=== PATIENT | male | born 1960 | race Hispanic/Latino ===

== ENCOUNTER → 2019-04-12 | Outpatient (CLI) | payer MEDICARE | END | disposition home or self-care (01) | LOC: RAH 15:36 | PROVIDERS: ATTEND Family Medicine | DX: M19.011 Primary osteoarthritis, right shoulder (principal); M75.101 Unspecified rotator cuff tear or rupture of right shoulder, not specified as traumatic | CPT/HCPCS: 73221 ==

== ENCOUNTER 2019-08-02 09:21 | Day surgery (SDC) | payer MEDICARE ==
[2019-07-31 10:32] VITALS: BP 132/72
[2019-07-31 11:37] LABS: BASOPHILS % (AUTO) 0.7 % (0.0-5.0); EOSINOPHILS % (AUTO) 1.7 % (0.0-8.0); HEMATOCRIT 41.2 % (42-54); LYMPHOCYTES % (AUTO) 26.5 % (21.0-51.0); MEAN CORPUSCULAR HEMOGLOBIN 30.3 pg (27.0-33.0); MEAN CORPUSCULAR HGB CONC 33.7 g/dL (32.0-36.0); MEAN CORPUSCULAR VOLUME 89.8 fL (79-99); MONOCYTES % (AUTO) 8.7 % (3.0-13.0); NEUTROPHILS % (AUTO) 61.8 % (40.0-77.0); PLATELET COUNT (AUTO) 297 K/uL (130-400); RED BLOOD CELL COUNT(AUTO) 4.59 MIL/uL (4.50-6.20); RED CELL DISTRIBUTION WIDTH 12.6 % (11.0-15.5); WHITE BLOOD COUNT (AUTO) 8.9 K/uL (4.8-10.8)
[~2019-08-02] VITALS: Ht 170.2 cm; Wt 83.2 kg
[2019-08-02] VITALS (12 sets, daily range): BP systolic 116–146; BP diastolic 73–89
[~2019-08-02 09:21] MED LIST: ATOR20TA65 PO; CEFAZOLIN SODIUM 1 GM VIAL IVP ONE; TRAM50TA4 PO
[2019-08-02] MEDS ORDERED: LACTATED RINGERS 1000ML 1,000 ML IV ONE (10:19)
[2019-08-02] MEDS ORDERED: CEFAZOLIN SODIUM 1 GM VIAL ONE (10:19)
--- NOTE | 2019-08-02 11:00 | NUR ---
POTENTIAL FOR INFECTION: SHAVED RIGHT SHOULDER / RT UPPER ARM PER JAZ ELENA, FOLLOWED BY WIPING WITH JEFRY: 2% CHLORHEXIDINE GLUCONATE CLOTH PATIENTS PRE-OP SKIN PREP.
[2019-08-02] MEDS ORDERED: EPINEPHRINE 1 MG/ML 30ML VIAL IJ ONE (13:40)
[2019-08-02] MEDS ORDERED: SUCCINYLCHOLINE CHLORIDE 20 MG/ML 10 ML VIAL ONE (13:50)
[2019-08-02] MEDS ORDERED: PROPOFOL 10 MG/ML 20ML VIAL IV ONE (13:50)
[2019-08-02] MEDS ORDERED: ROCURONIUM 10MG/1ML SYR 10 MG/ML ML ONE (13:50)
[2019-08-02] MEDS ORDERED: LIDOCAINE PF 2% 5ML ABBOJECT ONE (13:50)
[2019-08-02] MEDS ORDERED: NEOSTIGMINE 5MG/5ML SYR IV ONE (16:15)
[2019-08-02] MEDS ORDERED: ONDANSETRON HCL 4 MG/2 ML VIAL ONE (16:15)
[2019-08-02] MEDS ORDERED: GLYCOPYRROLATE 1 MG/5 ML SYRINGE ONE (16:15)
[2019-08-02] MEDS ORDERED: CEPH500B PO (17:00)
[2019-08-02] MEDS ORDERED: HYDR-4457 PO (17:00)
[2019-08-02] MEDS ORDERED: IBUP-2070 PO (17:00)
== END 2019-08-02 18:10 | disposition home or self-care (01) ==
LOC: DAH 09:21
PROVIDERS: ATTEND Orthopaedic Surgery
DX: S46.011A Strain of muscle(s) and tendon(s) of the rotator cuff of right shoulder, initial encounter (principal); S46.211A Strain of muscle, fascia and tendon of other parts of biceps, right arm, initial encounter; K21.9 Gastro-esophageal reflux disease without esophagitis; E78.5 Hyperlipidemia, unspecified; M25.811 Other specified joint disorders, right shoulder; X58.XXXA Exposure to other specified factors, initial encounter; Y93.89 Activity, other specified; Y92.89 Other specified places as the place of occurrence of the external cause; Y99.8 Other external cause status; E66.3 Overweight; Z68.28 Body mass index [BMI] 28.0-28.9, adult; Z79.899 Other long term (current) drug therapy; Z98.890 Other specified postprocedural states
CPT/HCPCS: 29823; 29826; 29827; 36415; 64415; 76942; 80048; 85025; A4213; A4215; A4221; A4222; A4223; A4565; A4600; A4649 ×5; A4663; A4930; A5120; A6204; C1713 ×2; G0168; J0171; J0330; J0690; J2001; J2405; J2704; J2710; J3490; J7030 ×2; J7120

== ENCOUNTER 2022-10-19 15:14 | Emergency (ER) | payer OTHER, MEDICARE ==
[~2022-10-19] VITALS: Ht 170.2 cm; Wt 79.8 kg
[~2022-10-19 15:14] MED LIST changes: -CEFAZOLIN SODIUM 1 GM VIAL IVP ONE; +CEPH500B PO; +HYDR-4457 PO; +IBUP-2070 PO; -TRAM50TA4 PO
[2022-10-19 15:47] VITALS: BP 144/69; PULSE 82; RESP 17
[2022-10-19] MEDS ORDERED: AMOX875T2 PO (18:07)
== END 2022-10-19 18:46 | disposition home or self-care (01) ==
LOC: EDH 15:14
DX: K04.7 Periapical abscess without sinus (principal)

== ENCOUNTER 2024-06-08 17:12 | Emergency (ER) | payer OTHER, MEDICARE ==
[~2024-06-08] VITALS: Ht 170.2 cm; Wt 81.2 kg
[~2024-06-08 17:12] MED LIST changes: +AMOX875T2 PO
--- NOTE | 2024-06-08 17:24 | ERN ---
ED Note History of Present Illness Stated Complaint: DIZZY, Chief Complaint: Dizzy/Light Headed Time Seen by MD: 17:13 Time Seen by Midlevel: 17:14 Dictation: Mr. Hinojosa is a 63-year-old gentleman with history of type 2 diabetes and BPH who presented to the emergency department this evening for evaluation dizziness. He reports one week of a dizziness; worse with position changes. He states he feels like he has been drinking and can not walk straight. He states he also feels like the room is spinning. He denies fever, chills, congestion, sore throat, chest pain, palpitations, shortness of breath, cough, abdominal pain, nausea, vomiting, diarrhea, dysuria, headache, or focal weakness/paresthesia. He was seen two days ago at his PCP's office and he was told that he had excessive cerumen in his ears. They performed irrigation and removed some wax. He was placed on otic drops; HC/acetic acid. He states symptoms have not improved prompting him to come to the hospital. Allergies: Coded Allergies: No Known Allergies (Verified Allergy, 02/07/12) Home Meds Active Scripts Amoxicillin (Amoxicillin) 875 Mg Tablet, 875 MG PO BID for 7 Days, #14 TAB Prov:BHAVNA HOU [employer]ELOPER 10/19/22 Ibuprofen (Ibuprofen) 600 Mg Tablet, 600 MG PO Q8H PRN for PAIN, #60 TAB Prov:JOSE NARANJO MD 08/02/19 Cephalexin Monohydrate (Keflex) 500 Mg Cap, 500 MG PO Q8H, #7 CAP Prov:JOSE NARANJO MD 08/02/19 Hydrocodone/Acetaminophen ([place] 5-325 Tablet) 1 Each Tablet, 1-2 EACH PO Q6HPRN PRN for PAIN, #60 TAB Prov:JOSE NARANJO MD 08/02/19 Reported Medications Atorvastatin Calcium (Atorvastatin Calcium) 20 Mg Tablet, 20 MG PO DAILY, TAB 08/01/19 Past Medical History Past Medical History: No Pertinent History Surgical History: None PSYCH History: no pertinent psych hx Social History: Negative, Lives with family RN Note Reviewed/Agreed w/PFSH: Yes Review of System Dictation REVIEW OF SYSTEMS: CONSTITUTIONAL: Patient denies fevers, chills, sweats and weight changes. EYES: Patient denies any visual symptoms. EARS, NOSE, AND THROAT: No symptoms of rhinitis or sore throat. States he was recently treated or cerumen impaction at his PCP's office two days ago. He states now ears are irritated. He has been using ear drops;HC/Acetic acid. CARDIOVASCULAR: Patient denies chest pains, palpitations, orthopnea and paroxysmal nocturnal dyspnea. RESPIRATORY: No dyspnea on exertion, no wheezing or cough. GI: No nausea, vomiting, diarrhea, constipation, abdominal pain, hematochezia or melena. : No urinary hesitancy or dribbling. No nocturia or urinary frequency. No abnormal urethral discharge. MUSCULOSKELETAL: No myalgias or arthralgias. NEUROLOGIC: No chronic headaches, no seizures. Patient denies numbness, tingling or weakness. He reports dizziness; worse with position changes. PSYCHIATRIC: Patient denies problems with mood disturbance. No problems with anxiety. ENDOCRINE: No excessive urination or excessive thirst. DERMATOLOGIC: Patient denies any rashes or skin changes. Initial Vital Sign VS Vital Signs Date Time Temp Pulse Resp B/P (MAP) Pulse Ox O2 Delivery O2 Flow Rate FiO2 06/08/24 17:15 98.4 84 16 150/96 97 Room Air 0 Physical Exam Dictation Vital signs: Reviewed. Afebrile Constitutional: No acute distress. Non-toxic appearing. Head/Face: Normocephalic, atraumatic. Eyes: Periorbital areas with no swelling, redness, or edema. Lids and lashes are normal. Conjunctival injection is absent. Sclera anicteric. Pupils equal, round, reactive to light. ENT: Pinnas intact and no signs of trauma or erythema. Ear canals clear and no discharge. TMs no erythema. No nasal discharge or bleeding noted. Oropharynx with no exudate, redness, swelling, masses, exudates, or evidence of obstruction. Uvula midline. Mucous membranes moist. Neck: Trachea midline, no masses palpated, and no cervical lymphadenopathy. No swelling. Supple, full range of motion. Chest/Axilla: No tenderness, no crepitus, no paradoxical movement, no retractions. Cardiovascular: Regular rate, regular rhythm, no murmur, no gallops. Symmetric pulses. No peripheral edema. BP 150/96 Respiratory: Respirations even and unlabored. Lung sounds clear; no wheezes, rales or rhonchi. Room air SpO2 98% Gastrointestinal: Inspection is normal. No distention is appreciated. Bowel sounds are normal. No mass or organomegaly . There is no tenderness. No rebound. No rigidity. No voluntary or involuntary guarding. No White's sign. Neurological: Normal speech, gross motor function intact, gross sensory function intact. Speech is clear; no aphasia/dysarthria. No dysphagia. No focal weakness/Paresthesia. Becomes very dizzy with position changes. Unsteady gait. Musculoskeletal/Extremities: All extremities have full range of motion, no pain or tenderness on palpation. Symmetric pulses. Integumentary: Intact. Skin is normal color, warm and dry. Cap refill less than 3 seconds. Results (Laboratory/Radiology) Laboratory/Radiology Laboratory Tests Test 06/08/24 17:50 White Blood Count 7.2 K/uL (4.8-10.8) Red Blood Count 4.76 MIL/uL (4.50-6.20) Hemoglobin 14.3 g/dL (14.0-18.0) Hematocrit 42.2 % (42-54) Mean Corpuscular Volume 88.7 fL (79-99) Mean Corpuscular Hemoglobin 30.0 pg (27.0-33.0) Mean Corpuscular Hemoglobin Concent 33.9 g/dL (32.0-36.0) Red Cell Distribution Width 13.1 % (11.0-15.5) Platelet Count 298 K/uL (130-400) Mean Platelet Volume 10.1 fL (7.5-10.5) Immature Granulocyte % (Auto) 0.6 % (0-1) Neutrophils (%) (Auto) 59.8 % (40.0-77.0) Lymphocytes (%) (Auto) 29.0 % (21.0-51.0) Monocytes (%) (Auto) 7.9 % (3.0-13.0) Eosinophils (%) (Auto) 1.7 % (0.0-8.0) Basophils (%) (Auto) 1.0 % (0.0-5.0) Neutrophils # (Auto) 4.3 K/uL (1.8-7.7) Lymphocytes # (Auto) 2.1 K/uL (1.0-4.8) Monocytes # (Auto) 0.6 K/uL (0.1-1.0) Eosinophils # (Auto) 0.12 K/uL (0.00-0.70) Basophils # (Auto) 0.07 K/uL (0.00-0.20) Absolute Immature Granulocyte (auto 0.04 K/uL (0-1) Nucleated Red Blood Cells 0.0 % (0.0-0.19) Sodium Level 135 mmol/L (136-145) L Potassium Level 3.4 mmol/L (3.5-5.1) L Chloride Level 100 mmol/L (101-111) L Carbon Dioxide Level 28 mmol/L (21-32) Blood Urea Nitrogen 10 mg/dL (7-18) Creatinine 1.0 mg/dL (0.5-1.3) Glomerular Filtration Rate Calc 84 mL/min (>90) Random Glucose 196 mg/dL (70-105) H Total Calcium 9.2 mg/dL (8.5-10.1) Troponin I High Sensitivity 6 ng/L (4-75) Labs Reviewed?: Yes EKG Comment: EKG Interpretation: Time Reviewed: 1743 Ventricular rate: 72 bpm [place] Interval: 173 ms QRS duration: [address] segment elevation or depression. Clinical impression: sinus rhythm EKG Reviewed and interpreted by Dr. Sherif Cole CT Scan Comment: PATIENT: KATYA HINOJOSA MR#: [id number] : 1960 SEX: M AGE: 63 LOCATION: [facility] ORDER 21 STATUS: [facility] REPORT#: [id number] SERVICE 1721 REASON: dizziness ORDERING PHYSICIAN: KANG LUEVANO NP PROCEDURE: HEAD WO - CT HEAD/BRAIN W/O CONTRAST CT HEAD WITHOUT CONTRAST INDICATION: Dizziness and giddiness TECHNIQUE: Noncontrast axial helical CT images from the vertex through the skull base using 5 mm slice thickness without contrast material. CT was performed with one or more of the following dose reduction techniques: Automated exposure control, adjustment of the mA and/or kV according to patient size, or use of iterative reconstruction technique. COMPARISON: None FINDINGS: The cerebral and cerebellar hemispheres are age-appropriate in appearance. No evidence for abnormal extra-axial fluid collections or masses. The ventricles and sulci are normal in size and configuration. No evidence for intracranial parenchymal, epidural, or subdural hemorrhage, mass effect or midline shift. The sales-white matter differentiation is well preserved. No secondary evidence to suggest acute ischemia. The brainstem and cerebellum appear normal. The visualized orbits appear unremarkable. Mild right maxillary sinus mucosal thickening. 2.8 cm right maxillary sinus mucus retention cyst. Nominal left maxillary sinus mucosal thickening and subcentimeter left maxillary sinus mucus retention cyst. Remainder of the visible paranasal sinuses and mastoid air cells are clear. The calvarium appears normal. IMPRESSION: No acute intracranial process identified. DICTATED BY: ALEJANDRO MANCILLA MD DATE: 06/08/241817 ELECTRONICALLY SIGNED BY: ALEJANDRO MANCILLA MD DATE: 06/08/241821 ED Course ED Course Orders Procedure Category Date Status Time Ct Head/Brain W/O CT 06/08/24 Resulted Contrast 17:21 Cbc With Differential LAB 06/08/24 Complete 17:21 Basic Metabolic Panel LAB 06/08/24 Complete 17:21 Troponin I High LAB 06/08/24 Complete Sensitivity 17:21 12 Lead Ekg Tracing- EKG 06/08/24 Logged Technical 17:21 Meclizine Hcl 25 Mg PHA 06/08/24 Complete (Antivert 25 Mg) 17:30 Current Medications Medications (Trade) Dose Ordered Sig/Oliver Route PRN Reason Start Time Stop Time Status Last Admin Dose Admin Meclizine HCl (ANTIvert 25 mg) 25 mg ONCE ONCE PO 06/08/24 17:30 06/08/24 17:31 DC 06/08/24 18:24 Vital Signs Date Time Temp Pulse Resp B/P (MAP) Pulse Ox O2 Delivery O2 Flow Rate FiO2 06/08/24 17:15 98.4 84 16 150/96 97 Room Air 0 Uneventful ED course. Vital signs stable; afebrile. Bilateral ear canals irritated/painful with bright erythema. Stat noncontrast CT scan of the brain negative for hemorrhage. Laboratory findings as noted below. No elevation of WBCs, H and H stable. Troponin negative. Glucose elevated at 196, K 3.4, Na/Cl 135/100. Twelve lead EKG reflects a sinus rhythm without ST elevation or depression. He received Meclizine and states that dizziness is decreased. Findings were discussed with patient and significant other; all questions answered. Medical Decision Making MDM MDM: Differential diagnosis: Vertigo, ic hemorrhage, ic mass, electrolyte derangement/hyponatremia Rationale: Tests considered and ordered secondary to shared decision making include: EKG, lab, CT Previous outside records reviewed: Old ER visits. Risk of complication and/or morbidity or mortality of patient management: None Medications-Per medication reconciliation Need for hospitalization: Patient does not meet criteria for hospitalization. Need for emergency major/minor surgery: No There are no social concerns with this patient. Prescription drug management: Meclizine Prescriptions will include symptomatic care Patient's prior external medical records from other ER visits were reviewed by me as indicated. Prior testing and results from previous visits were reviewed. Prior tests were taken into account with medical decision making and resource utilization, independent historian/historians were used to obtain complete medical history. I independently interpreted the test that were performed, results were reviewed by me and considered findings on radiology if ordered. Medical management and examination interpretation discussions were had by me with other qualified healthcare professionals as indicated for the patient's care. DX & DISP Disposition: Discharge Departure Impression: Primary Impression: Vertigo Additional Impressions: Otitis externa, Type 2 diabetes mellitus with hyperglycemia, Elevated blood pressure reading Condition: Stable Scripts Meclizine HCl (Meclizine HCl) 25 Mg Tablet 25 MG PO BID PRN for dizziness, #12 TAB 0 Refills Prov: KANG LUEVANO NP 06/08/24 Additional Instructions: Rest. Drink plenty of fluids. Continue ear drops. Avoid getting/changing position suddenly. May take meclizine every 12 hours as needed for dizziness. Keep log of your blood pressure and glucose readings and take when you follow up with your primary care physician. Follow up next week with your PCP. Return to the emergency department for any worsening of symptoms or concerns. Referrals: OSCAR BUTLER DO (PCP) Time of Disposition: 18:38 KANG LUEVANO NP Jun 08, 2024 17:24
[2024-06-08 17:58] LABS: BASOPHILS # (AUTO) 0.07 K/uL (0.00-0.20); EOSINOPHILS # (AUTO) 0.12 K/uL (0.00-0.70); EOSINOPHILS % (AUTO) 1.7 % (0.0-8.0); HEMATOCRIT 42.2 % (42-54); IMMATURE GRANULOCYTE ABSOLUTE 0.04 K/uL (0-1); LYMPHOCYTES # (AUTO) 2.1 K/uL (1.0-4.8); MEAN CORPUSCULAR HGB CONC 33.9 g/dL (32.0-36.0); MEAN CORPUSCULAR VOLUME 88.7 fL (79-99); MONOCYTES # (AUTO) 0.6 K/uL (0.1-1.0); MONOCYTES % (AUTO) 7.9 % (3.0-13.0); NEUTROPHILS # (AUTO) 4.3 K/uL (1.8-7.7); NEUTROPHILS % (AUTO) 59.8 % (40.0-77.0); PLATELET COUNT (AUTO) 298 K/uL (130-400); RED BLOOD CELL COUNT(AUTO) 4.76 MIL/uL (4.50-6.20); RED CELL DISTRIBUTION WIDTH 13.1 % (11.0-15.5); WHITE BLOOD COUNT (AUTO) 7.2 K/uL (4.8-10.8)
[2024-06-08 18:07] LABS: POTASSIUM 3.4 mmol/L (3.5-5.1)
--- NOTE | 2024-06-08 18:22 | HMCIMG ---
CT HEAD WITHOUT CONTRAST INDICATION: Dizziness and giddiness TECHNIQUE: Noncontrast axial helical CT images from the vertex through the skull base using 5 mm slice thickness without contrast material. CT was performed with one or more of the following dose reduction techniques: Automated exposure control, adjustment of the mA and/or kV according to patient size, or use of iterative reconstruction technique. COMPARISON: None FINDINGS: The cerebral and cerebellar hemispheres are age-appropriate in appearance. No evidence for abnormal extra-axial fluid collections or masses. The ventricles and sulci are normal in size and configuration. No evidence for intracranial parenchymal, epidural, or subdural hemorrhage, mass effect or midline shift. The sales-white matter differentiation is well preserved. No secondary evidence to suggest acute ischemia. The brainstem and cerebellum appear normal. The visualized orbits appear unremarkable. Mild right maxillary sinus mucosal thickening. 2.8 cm right maxillary sinus mucus retention cyst. Nominal left maxillary sinus mucosal thickening and subcentimeter left maxillary sinus mucus retention cyst. Remainder of the visible paranasal sinuses and mastoid air cells are clear. The calvarium appears normal. IMPRESSION: No acute intracranial process identified.
[2024-06-08] MEDS: mecliZINE HCL 25 MG TABLET PO ONE (18:24)
[2024-06-08] MEDS ORDERED: MECL-302 PO (18:39)
[2024-06-08 19:01] VITALS: BP 157/83; PULSE 89; RESP 20; TEMP 97; O2SAT 97
--- NOTE | 2024-06-08 20:38 | EKG ---
[facility] Test Date: 2024-06-08 Test Time: 17:42:17 Pat Name: KATYA MUSE Department: ED Room: Gender: Endodontics Dentist: [facility] : 1960 Requested By: KANG LUEVANO Order Number: [id number] Reading MD: Cecelia Mejias Measurements Intervals [place] Rate: 72 P: 66 NE: 173 QRS: -24 QRSD: 116 T: 36 QT: 396 QTc: 434 Interpretive Statements Sinus rhythm Incomplete right bundle branch block No previous ECG available for comparison Electronically Signed On 06-10-2024 16:44:42 CDT by Cecelia Mejias Please click the below link to view image of tracing.
== END 2024-06-08 19:02 | disposition home or self-care (01) ==
LOC: EDH 17:12
DX: R42 Dizziness and giddiness (principal); H60.90 Unspecified otitis externa, unspecified ear; E11.65 Type 2 diabetes mellitus with hyperglycemia; R03.0 Elevated blood-pressure reading, without diagnosis of hypertension; Z79.899 Other long term (current) drug therapy
CPT/HCPCS: 36415; 70450; 80048; 84484; 85025; 93005; 99284